=== PATIENT | female | born 1960 | race Caucasian/White ===

== ENCOUNTER → 2017-11-13 | Day surgery (SDC) | payer BC, OTHER ==
[~2017-11-13] MED LIST: LIDOCAINE 1% PF 2 ML VIAL. ID; LIDOCAINE 2% PF Vial for OR 5 ML VIAL.; MIDAZOLAM HCL/PF 2 MG/2 ML VIAL. IV; PROPOFOL 40 ML IV; fentaNYL PF VIAL 100 MCG/2 ML VIAL IV
[2017-11-13] MEDS: IV RINGERS,LACTATED 1000ML 1,000 ML IV (07:40)
[2017-11-13 10:37] LABS: VITAMIN-B12 242 pg/mL (247-911)
== END | disposition home or self-care (01) ==
LOC: SURG 06:59
DX: K64.0 First degree hemorrhoids (principal); K29.40 Chronic atrophic gastritis without bleeding; K21.9 Gastro-esophageal reflux disease without esophagitis; M19.90 Unspecified osteoarthritis, unspecified site; Z87.891 Personal history of nicotine dependence; Z87.39 Personal history of other diseases of the musculoskeletal system and connective tissue
CPT/HCPCS: 36415; 82607; J2704